=== PATIENT | male | born 1990 | race African-American/Black ===

== ENCOUNTER → 2018-04-17 | Outpatient (REF) ==
[2018-04-17 16:39] LABS: CRYSTALS, BODY FLUID NONE SEEN (NONE SEEN); SOURCE, BODY FLUID LFT KNEE; SOURCE, BODY FLUID CRYSTALS LFT KNEE; SYNOVIAL FLUID COLOR YELLOW (YELLOW)
== END ==
LOC: M LAB REF 15:38
PROVIDERS: ATTEND Physician Assistant
DX: Z00.00 Encounter for general adult medical examination without abnormal findings (principal)

== ENCOUNTER 2019-01-10 16:26 | Emergency (ER) | payer OTHER ==
[~2019-01-10] VITALS: Ht 190.5 cm; Wt 129.0 kg
[2019-01-10] MEDS ORDERED: ACET325C5 PO (16:33)
[2019-01-10] MEDS ORDERED: PSEU30TA85 PO (16:33)
[2019-01-10] MEDS ORDERED: FLON1SPR NARES (18:31)
[2019-01-10] MEDS ORDERED: AFRI0.058 (18:31)
[2019-01-10] MEDS ORDERED: IBUP-1022 PO (18:32)
[2019-01-10 18:42] VITALS: BP 150/105
[2019-01-10] MEDS ORDERED: AMOX500C PO (18:42)
[2019-01-10] MEDS ORDERED: AMOXICILLIN 500 MG CAP PO ONE (18:45)
== END 2019-01-10 19:37 | disposition home or self-care (01) ==
LOC: M ED 16:26
DX: H65.01 Acute serous otitis media, right ear (principal); J02.9 Acute pharyngitis, unspecified

== ENCOUNTER 2019-06-24 16:56 | Emergency (ER) | payer OTHER ==
[~2019-06-24] VITALS: Ht 182.9 cm; Wt 132.5 kg
[~2019-06-24 16:56] MED LIST: ACET325C5 PO; AFRI0.058; AMOX500C PO; FLON1SPR NARES; IBUP-1022 PO; PSEU30TA85 PO
--- NOTE | 2019-06-24 18:13 | REP ---
Right ankle series: Four views. History: Twisting injury. Findings: Four views of the right ankle demonstrate Achilles calcaneal spurring. Ankle mortise is intact. No fracture is visible. Bones, joints and soft tissues are otherwise unremarkable. Impression: No acute bony abnormality. Mild Achilles calcaneal spurring. Electronically Signed by Antonio Solis MD 06/24/2019 06:22 P
--- NOTE | 2019-06-24 19:14 | REP ---
Right foot series: Four views. History: Right foot pain. Findings: Four views right foot are compared with the September 25, 2014 prior radiographs. Overall mineralization pattern is normal. No fracture or subluxation is seen. Impression: Negative radiographs of the right foot. Electronically Signed by Antonio Solis MD 06/24/2019 07:05 P
[2019-06-24 19:27] VITALS: BP 155/100
== END 2019-06-24 19:42 | disposition home or self-care (01) ==
LOC: M ED 16:56
DX: S93.401A Sprain of unspecified ligament of right ankle, initial encounter (principal); X50.9XXA Other and unspecified overexertion or strenuous movements or postures, initial encounter; Y92.59 Other trade areas as the place of occurrence of the external cause; Y93.89 Activity, other specified; Y99.0 Civilian activity done for income or pay; I10 Essential (primary) hypertension; Z87.828 Personal history of other (healed) physical injury and trauma; Z83.3 Family history of diabetes mellitus